=== PATIENT | female | born 2000 | race Two or more races ===

== ENCOUNTER 2021-10-02 17:32 | Emergency (ER) | payer MEDICAID, OTHER ==
[~2021-10-02] VITALS: Ht 157.5 cm; Wt 49.0 kg
[2021-10-02 19:08] VITALS: BP 122/61
[2021-10-02] MEDS ORDERED: TRIA0.02 TOP (19:53)
== END 2021-10-02 20:01 | disposition home or self-care (01) ==
LOC: ER 17:32
DX: R59.1 Generalized enlarged lymph nodes (principal); R21 Rash and other nonspecific skin eruption; Z79.899 Other long term (current) drug therapy